=== PATIENT | male | born 1995 | race African-American/Black ===

== ENCOUNTER 2019-07-02 14:23 | Inpatient (IN) | payer OTHER ==
[~2019-07-02] VITALS: Ht 172.7 cm; Wt 78.3 kg
[2019-07-02 15:45] VITALS: BP 122/81
[2019-07-02] MEDS ORDERED: KETOROLAC 30 MG/ML VIAL. IVP ONE (15:45)
--- NOTE | 2019-07-02 16:50 | PDOC1 ---
History and Physical Date of Admission Date of Admission DATE: 07/02/19 TIME: 16:45 Identification/Chief Complaint Chief Complaint Abdominal pain nausea vomiting Source Source: Chart review, Patient History of Present Illness History of Present Illness 23-year-old male who has had a 48 hour history of nausea vomiting and abdominal pain starting in the epigastric area but now radiating to the right lower quadrant. He denies any change in his bowel habits unsure of his been running a fever went to the emergency department to be evaluated [place] found to have an elevated white count of 12.5 with a left shift CT scan was done which showed the appearance of the appendiceal stump with a fecalith as well as some periappendiceal inflammation. Of note the patient did have an appendectomy done in 2014 and states the pain is very similar to that pain. Past Medical History Cardiovascular: No pertinent hx Pulmonary: No pertinent hx GI: No pertinent hx Heme/Onc: No pertinent hx Hepatobiliary: No pertinent hx Psych: No pertinent hx Rheumatologic: No pertinent hx Infectious disease: No pertinent hx ENT: No pertinent hx Renal/: No pertinent hx Endocrine: No pertinent hx Dermatology: No pertinent hx Past Surgical History Past Surgical History: Appendectomy, Other Family History Family History: No Significant Social History Smoke: No ALCOHOL: none Drugs: None Current Medications Current Medications Current Medications Ketorolac Tromethamine (Toradol 30mg Vial) 30 mg 1X ONCE IVP Last administered on 07/02/19at 15:45; Start 07/02/19 at 15:45; Stop 07/02/19 at 15:46; Status DC Allergies Allergies: Coded Allergies: No Known Drug Allergies (Unverified , 07/02/19) ROS Gastrointestinal: Yes Nausea, Yes Vomiting, Yes Abdominal Pain Physical Exam General: Alert, Oriented X3, Cooperative, mild distress HEENT: Atraumatic, PERRLA, EOMI Lungs: Clear to auscultation, Normal air movement Heart: RRR, no murmurs Abdomen: Normal bowel sounds, Soft, Other (tender to palpation right mid abdomen to right lower abdomen) Rectal Exam: not examined Extremities: No edema Skin: No significant lesion Neuro: Normal speech Psych/Mental Status: Mental status NL Vitals Vitals Vital Signs Date Time Temp Pulse Resp B/P (MAP) Pulse Ox O2 Delivery O2 Flow Rate FiO2 07/02/19 15:45 98.3 72 16 122/81 (95) 96 Room Air 98.3 Labs Labs Labs done at [place] showed a white count of 12.5 with left shift otherwise essentially normal Images Images CT scan as in the history of present illness VTE Prophylaxis Ordered VTE Prophylaxis Devices: Yes VTE Pharmacological Prophylaxi: Contraindicated Assessment/Plan Assessment/Plan Right lower quadrant abdominal pain nausea vomiting CT scan showing signs consistent with acute appendicitis plan diagnostic laparoscopy with appendectomy Reviewed planned procedure with patient and his significant other explained to him that this may represent a appendiceal stump but needs further resection or some other type of infection which may not be able to be managed laparoscopi parminder may need open operation. TAMMY WARD MD Jul 02, 2019 16:50
[2019-07-02] MEDS ORDERED: IV RINGERS,LACTATED 1000ML 1,000 ML IV SCH ×2 (17:00→18:03)
[2019-07-02] MEDS ORDERED: LIDOCAINE 2% PF 5 ML VIAL. ONE (17:16)
[2019-07-02] MEDS ORDERED: PROPOFOL 20 ML IV ONE (17:16)
[2019-07-02] MEDS ORDERED: ROCURONIUM 50 MG/5 ML VIAL. ONE (17:17)
[2019-07-02] MEDS ORDERED: fentaNYL PF VIAL 100 MCG/2 ML VIAL ONE ×2 (17:17→19:20)
[2019-07-02] MEDS ORDERED: SUCCINYLCHOLINE 200 MG/10 ML VIAL. ONE (17:17)
[2019-07-02] MEDS: IV RINGERS,LACTATED 1000ML 1,000 ML IV SCH (17:20)
[2019-07-02] MEDS ORDERED: BUPIVACAINE-EPI 0.25%-1:200000 MPF 30 ML VIAL. INJ ONE (17:45)
[2019-07-02] MEDS ORDERED: PROCHLORPERAZINE 10 MG/2 ML VIAL. IV PRN (18:15)
[2019-07-02] MEDS ORDERED: HYDROmorphone 2 MG/ML VIAL IV PRN (18:15)
[2019-07-02] MEDS ORDERED: fentaNYL PF VIAL 100 MCG/2 ML VIAL IV PRN (18:15)
[2019-07-02] MEDS ORDERED: ONDANSETRON PF 4 MG/2 ML VIAL. IV PRN ×2 (18:15→19:15)
[2019-07-02] MEDS ORDERED: MORPHINE SULFATE 2 MG/ML VIAL. IV PRN ×2 (18:15→19:15)
[2019-07-02] MEDS ORDERED: LIDOCAINE 1% PF 2 ML VIAL. ID PRN (18:15)
[2019-07-02] MEDS ORDERED: DESFLURANE 31 TO 60 MINUTES IH ONE (18:18)
[2019-07-02] MEDS ORDERED: ONDANSETRON PF 4 MG/2 ML VIAL. ONE (18:18)
[2019-07-02] MEDS ORDERED: DEXAMETHASONE SOD PHOS 4 MG/ML VIAL ONE (18:18)
[2019-07-02] MEDS ORDERED: NEOSTIGMINE METHYLSULFATE 5 MG/5 ML SYRINGE. ONE (18:24)
[2019-07-02] MEDS ORDERED: GLYCOPYRROLATE 1 MG/5 ML VIAL. ONE (18:24)
[2019-07-02] MEDS: IV DEXTROSE 5%-LACT RINGERS 1,000 ML IV SCH (19:04)
--- NOTE | 2019-07-02 19:04 | PDOC4 ---
Operative Note Operative Note Date: 07/02/2019 Preoperative diagnosis: Acute appendicitis Postoperative diagnosis: Same Procedure: Diagnostic laparoscopy with completion appendectomy Specimen: Appendix Surgeon: Narinder Dictation: Patient is a 23-year-old male with complaints of right lower quadrant abdominal pain nausea vomiting. He had previously had an appendectomy 4 years ago in [place]. Evaluation emergency department showed elevated white count and a CT scan showing what appeared to be a remnant of the appendix dilated with cher-appendiceal inflammation. Procedure of diagnostic laparoscopy with appendectomy was explained to the patient detail risk benefits were also discussed including bleeding infection injury to intra-abdominal contents possibly necessitating further or open operations alternatives to this procedure also discussed with the patient who seemed to understand and gave both verbal and written consent had the procedure performed. Patient was taken to the ope rating room placed in supine position general anesthesia was initiated once patient was sleep and intubated his abdomen was prepped and draped usual sterile fashion using ChloraPrep and area just below the umbilicus was injected with quarter percent Marcaine with epinephrine incision was luis blade scalpel varies needle was placed within the abdomen creating pneumoperitoneum once this was complete 12 mm port was placed and a 5 mm camera was placed within the abdomen which was inspected no other abnormalities were noted was noted just coming off of the cecum somewhat retrocecal was a bulbous cutter structure that appeared to be the remnant of the appendix. A 5 mill meter port was placed low in the midline of the pelvis and a second 5 mm port was placed in the right mid abdomen. Using a grasper and [place] dissector the appendiceal remnant was dissected of its adherent tissues and freeing it up allowing for Endo MARIA EUGENIA stapler to staple and transect the very base of the appendix at the cecum. The appendix then placed in Endo Catch bag and removed from the umbilicus right lower quadrant and pelvis were irrigated and suctioned dry hemostasis deemed to be appropriate and the pneumoperitoneum was reduced all ports removed fascial defect at the umbilicus was closed with a [id number] 0 Vicryl suture and skin was reapproximated all port sites for subarticular Monocryl Mastisol Steri- Strips and island dressings were applied. Patient was awakened and bated operating room taken to recovery in stable condition all sponge instrument needle counts listed as correct estimate blood loss 10 mL TAMMY WARD MD Jul 02, 2019 19:03
[2019-07-02] MEDS ORDERED: 0.9 % SODIUM CHLORIDE 10 ML DISP.SYRIN. IV PRN (19:15)
[2019-07-02] MEDS ORDERED: oxyCODONE/APAP 5/325 1 TAB TABLET PO PRN (19:15)
[2019-07-02] MEDS: fentaNYL PF VIAL 100 MCG/2 ML VIAL IV PRN ×2 (19:22→19:35)
--- NOTE | 2019-07-02 19:51 | NUR ---
Pt. arrived on unit at 1950 by bed from PACU. Girlfriend is at bedside. Pt. does not complain of too much pain at this time just has ice on abdomen. Will continue to monitor.
[2019-07-02 20:00] VITALS: BP 107/54
[2019-07-02 20:30] VITALS: BP 111/69
[2019-07-02] MEDS: oxyCODONE/APAP 5/325 1 TAB TABLET PO PRN (20:55)
[2019-07-02 21:30] VITALS: BP 120/73
[2019-07-02 22:30] VITALS: BP 102/50
[2019-07-02 23:00] VITALS: BP 105/43
[2019-07-02] MEDS: KETOROLAC 15 MG/ML VIAL. IV SCH (23:46)
[2019-07-02] MEDS: PIPERACILLIN/TAZOBACTAM 3.375 GM in IV NORMAL SALINE 50ML 50 ML IV SCH (23:46)
[2019-07-03 03:00] VITALS: BP 108/65
[2019-07-03] MEDS: IV RINGERS,LACTATED 1000ML 1,000 ML IV SCH (03:00)
[2019-07-03 04:52] LABS: BASO % 0 % (0-3); EOS % 0 % (0-3); HEMATOCRIT 41.5 % (39.0-53.0); HEMOGLOBIN 13.7 g/dL (13.0-17.5); LYMPH # 0.4 x10^3/uL (1.0-4.8); LYMPH % 3 % (24-48); MEAN CORPUSCULAR HEMOGLOBIN 29 pg (25-35); MEAN CORPUSCULAR HGB CONC 33 g/dL (31-37); MEAN CORPUSCULAR VOLUME 86 fL (79-100); MONO # 0.7 x10^3/uL (0.0-1.1); MONO % 5 % (0-9); NEUT # 12.1 x10^3/uL (1.8-7.7); NEUT % 92 % (31-73); PLATELET COUNT 156 x10^3/uL (140-400); RED BLOOD COUNT 4.82 x10^6/uL (4.30-5.70); WHITE BLOOD COUNT 13.2 x10^3/uL (4.0-11.0)
[2019-07-03] MEDS: PIPERACILLIN/TAZOBACTAM 3.375 GM in IV NORMAL SALINE 50ML 50 ML IV SCH ×2 (06:03→11:49)
[2019-07-03] MEDS: KETOROLAC 15 MG/ML VIAL. IV SCH ×2 (06:04→11:53)
[2019-07-03 06:51] LABS: % BANDS 18 % (0-9); % LYMPHS 4 % (24-48); % METAS 1 % (0-0)
[2019-07-03 06:52] LABS: % MONOS 4 % (0-10); % SEGS 73 % (35-66); PLT ESTIMATE ADEQUATE (ADEQUATE)
[2019-07-03 06:53] LABS: OVALOCYTES FEW
[2019-07-03 07:00] VITALS: BP 113/61
[2019-07-03] MEDS: oxyCODONE/APAP 5/325 1 TAB TABLET PO PRN ×2 (07:35→15:02)
[2019-07-03] MEDS: IV DEXTROSE 5%-LACT RINGERS 1,000 ML IV SCH (07:43)
[2019-07-03 11:00] VITALS: BP 111/57
[2019-07-03] MEDS ORDERED: AMOX1TAB61 PO (12:10)
[2019-07-03] MEDS ORDERED: OXYC1TAB15 PO (12:10)
--- NOTE | 2019-07-03 12:15 | DISCH ---
DISCHARGE INSTRUCTIONS Condition on Discharge Condition on Discharge: Stable Activity After Discharge Activity Instructions for Disc: Activity as tolerated Lifting Instructions after Dis: No heavy lifting (20 lbsx 2 weeks ) Driving Instructions after Dis: Do not drive today (no driving while taking pain medication ) Diet after Discharge Diet after Discharge: Regular Wound Incision Care Wound/Incision Care: May get incision wet, No wound care needed Other wound/incision instructi: no tub baths x 2 weeks Contacting the after DC Call your doctor for: Concerns you may have Follow-Up Follow up with: Dr Barcenas 2 weeks, call to schedule [phone] MIREILLE AJ CHOP SAW OPERATOR Jul 03, 2019 12:15
--- NOTE | 2019-07-03 12:21 | PDOC ---
SURGICAL PROGRESS NOTE Subjective tolerating diet pain managed urinating no vomiting Vital Signs Vital Signs Date Time Temp Pulse Resp B/P (MAP) Pulse Ox O2 Delivery O2 Flow Rate FiO2 07/03/19 07:35 Room Air 07/03/19 07:00 99.0 92 18 113/61 (78) 97 99.0 07/02/19 19:07 10 I&O Intake and Output 07/03/19 07:00 Intake Total 100 ml Output Total 400 ml Balance -300 ml Intake Oral 100 ml Output Urine Total 400 ml General: Alert, Oriented X3, Cooperative Abdomen: Soft, Other (lap dressings dry) Labs Laboratory Tests Test 07/03/19 04:20 07/03/19 04:25 White Blood Count 13.2 x10^3/uL (4.0-11.0) Red Blood Count 4.82 x10^6/uL (4.30-5.70) Hemoglobin 13.7 g/dL (13.0-17.5) Hematocrit 41.5 % (39.0-53.0) Mean Corpuscular Volume 86 fL (79-100) Mean Corpuscular Hemoglobin 29 pg (25-35) Mean Corpuscular Hemoglobin Concent 33 g/dL (31-37) Red Cell Distribution Width 13.0 % (11.5-14.5) Platelet Count 156 x10^3/uL (140-400) Neutrophils (%) (Auto) 92 % (31-73) Lymphocytes (%) (Auto) 3 % (24-48) Monocytes (%) (Auto) 5 % (0-9) Eosinophils (%) (Auto) 0 % (0-3) Basophils (%) (Auto) 0 % (0-3) Neutrophils # (Auto) 12.1 x10^3/uL (1.8-7.7) Lymphocytes # (Auto) 0.4 x10^3/uL (1.0-4.8) Monocytes # (Auto) 0.7 x10^3/uL (0.0-1.1) Eosinophils # (Auto) 0.0 x10^3/uL (0.0-0.7) Basophils # (Auto) 0.0 x10^3/uL (0.0-0.2) Segmented Neutrophils % 73 % (35-66) Band Neutrophils % 18 % (0-9) Lymphocytes % 4 % (24-48) Monocytes % 4 % (0-10) Metamyelocytes % 1 % (0-0) Platelet Estimate Adequate (ADEQUATE) Large Platelets Occ Ovalocytes Few Lactic Acid Level 0.9 mmol/L (0.4-2.0) Laboratory Tests Test 07/03/19 04:20 07/03/19 04:25 White Blood Count 13.2 x10^3/uL (4.0-11.0) Red Blood Count 4.82 x10^6/uL (4.30-5.70) Hemoglobin 13.7 g/dL (13.0-17.5) Hematocrit 41.5 % (39.0-53.0) Mean Corpuscular Volume 86 fL (79-100) Mean Corpuscular Hemoglobin 29 pg (25-35) Mean Corpuscular Hemoglobin Concent 33 g/dL (31-37) Red Cell Distribution Width 13.0 % (11.5-14.5) Platelet Count 156 x10^3/uL (140-400) Neutrophils (%) (Auto) 92 % (31-73) Lymphocytes (%) (Auto) 3 % (24-48) Monocytes (%) (Auto) 5 % (0-9) Eosinophils (%) (Auto) 0 % (0-3) Basophils (%) (Auto) 0 % (0-3) Neutrophils # (Auto) 12.1 x10^3/uL (1.8-7.7) Lymphocytes # (Auto) 0.4 x10^3/uL (1.0-4.8) Monocytes # (Auto) 0.7 x10^3/uL (0.0-1.1) Eosinophils # (Auto) 0.0 x10^3/uL (0.0-0.7) Basophils # (Auto) 0.0 x10^3/uL (0.0-0.2) Segmented Neutrophils % 73 % (35-66) Band Neutrophils % 18 % (0-9) Lymphocytes % 4 % (24-48) Monocytes % 4 % (0-10) Metamyelocytes % 1 % (0-0) Platelet Estimate Adequate (ADEQUATE) Large Platelets Occ Ovalocytes Few Lactic Acid Level 0.9 mmol/L (0.4-2.0) Assessment/Plan s/p appy dc home scripts e sent NICKEL,MIREILLE L SUBASSEMBLY SUPERVISOR Jul 03, 2019 12:21
--- NOTE | 2019-07-03 13:22 | NUR ---
SW following for discharge. Discussed with RN, pt to get up and move around some today. RN advised no SW needs. Possible discharge today or tomorrow (07/04/19). SW will continue to follow.
[2019-07-03 14:52] VITALS: BP 112/61
--- NOTE | 2019-07-03 15:11 | NUR ---
Discharge instructions given to pt/s.o., see instruction sheet, premedicated for transport home.
--- NOTE | 2019-07-05 21:05 | PATHOLOGY ---
[facility] Accession Number: [id number] . 01 Material submitted: . appendix - APPENDIX . 01 Clinical history: . Hx appy 4yrs ago in [place]-completion of appendectomy . 02 Diagnosis: Segment of appendix, laparoscopic completion appendectomy: - Acute appendicitis with serosal exudate, adhesions, and acute mesoappendicitis/periappendicitis. (JPM/db; 07/05/2019) LBQ 07/05/2019 2010 Local . 02 Electronically signed: . Sumanth Russo MD, Pathologist NPI- [id number] . 01 Gross description: . Received in formalin labeled "Age, Johnathon, appendix," is a curved segment of appendix measuring 3.4 cm in length by 1.1 cm in diameter with scant attached possible mesoappendix. The appendiceal serosa is smooth to shaggy, grossly disrupted and pale burnette to casas-burnette hemorrhagic in appearance. A linear staple line is present along one aspect of the specimen and closing one end of the appendix; the serosa at this aspect is suspected as proximal and inked black. The staple line is removed, with the new margin inked red. Serial sectioning reveals a pinpoint to dilated lumen measuring up to 1.0 cm in diameter, with the suspected distal lumen containing a solid segment of dark burnette-brown fecal material measuring up to 1.2 cm and containing a granular core. Sectioning through the suspected distal aspect reveals a possible perforation measuring 0.2 cm, as well as embedded sarina in one aspect of the specimen. The suspected proximal margin and bisected distal tip are submitted in cassette A1, and the remainder of the specimen is submitted proximal-distal in cassettes A2 through A4. (DAC; 07/04/2019) XDC/XDC 07/04/2019 0944 Local . 02 Pathologist provided ICD-10: K35.80 . 02 CPT . 170644 Specimen Comment: A courtesy copy of this report has been sent to [phone] Specimen Comment: Report sent to Performed at: 01 [facility] [address] [place] [address] [address], [place] [id number] MD Huber Peterson MD Phone: [phone] Performed at: 02 [facility] [address] [place] [id number] MD Sumanth Russo MD Phone: [phone]
== END 2019-07-03 15:30 | disposition home or self-care (01) | DRG 343 ==
LOC: 4 NORTH 14:49
PROVIDERS: ADMIT Surgery; ATTEND Surgery
PROC: 0DTJ4ZZ Resection of Appendix, Percutaneous Endoscopic Approach (ICD-10-PCS; principal; 2019-07-02 17:37)
DX: K35.80 Unspecified acute appendicitis (principal); K56.41 Fecal impaction
CPT/HCPCS: 36415; 83605; 85007; 85025; 87040; A7015; J0330; J0696; J1100; J1885; J2001; J2270; J2405; J2543; J2704; J2710; J3010; J3490; J7030; J7120; G0378